=== PATIENT | male | born 1990 | race Caucasian/White ===

== ENCOUNTER 2017-08-29 09:19 | Emergency (ER) | payer SELFPAY ==
[~2017-08-29] VITALS: Ht 170.2 cm; Wt 64.0 kg
[2017-08-29] MEDS ORDERED: ERYTHROMYCIN EYE (09:30)
[2017-08-29] MEDS ORDERED: TOBR5DRO45 OP (09:30)
[2017-08-29 12:20] VITALS: BP 108/60
== END 2017-08-29 12:21 | disposition home or self-care (01) ==
LOC: ER 09:25
DX: H16.002 Unspecified corneal ulcer, left eye (principal)
CPT/HCPCS: 99283